=== PATIENT | female | born 1970 | race Hispanic/Latino ===

== ENCOUNTER 2018-01-17 10:27 | Emergency (ER) | payer BC ==
[2018-01-17 10:27] VITALS: BMI 27.3
[2018-01-17 11:06] VITALS: RESP 18; TEMP 98.2; O2SAT 100
[2018-01-17] MEDS ORDERED: Sodium Chloride 0.9% 1,000 ML IV STA (11:33)
--- NOTE | 2018-01-17 11:44 | ED PDOC ---
Arrival/HPI - General Chief Complaint: Headache Time Seen by Provider: 01/17/18 10:49 Historian: Patient, Parent - History of Present Illness Narrative History of Present Illness (Text): you were treated in the ED today for having hx of headaches similar to current with headache which has been persistent with hx of neck nerve type pain and associated light sensisitivity and nausea, but otherwise without any fever/head injury/loss of consciousness/vomiting/headache/dizziness/difficulty breathing/ chest pain/abdomen pain/numbness/tingling/loss of limb or bowel or bladder function/pain with urination/travel/prior blood clots/cancer/hormonal use. Time/Duration: Other (5 days) Symptom Onset: Gradual Symptom Course: Unchanged, Intermittent Quality: Aching Severity Level: 2 Activities at Onset: Rest Context: Sitting Past Medical History - Provider Review Nursing Documentation Reviewed: Yes - Travel History Have you recently traveled outside [place] w/in the past 3 mons?: No - Infectious Disease Hx of Infectious Diseases: None - Tetanus Immunization Tetanus Immunization: Unknown - Reproductive Menopause: No - Past Medical History Past Medical History: No Previous - Gastrointestinal Hx Gastrointestinal Ulcer: Yes - Psychiatric Hx Depression: No Hx Emotional Abuse: No Hx Physical Abuse: No Hx Substance Use: No - Surgical History Hx Section: Yes - Anesthesia Hx Anesthesia: No - Suicidal Assessment Feels Threatened In Home Enviroment: No Family/Social History - Physician Review Nursing Documentation Reviewed: Yes Family/Social History: No Known Family HX Smoking Status: Unknown If Ever Smoked Hx Alcohol Use: No Hx Substance Use: No Hx Substance Use Treatment: No Allergies/Home Meds Allergies/Adverse Reactions: Allergies No Known Allergies Allergy (Verified 01/17/18 11:16) Home Medications: Home Meds Medication Instructions Recorded Confirmed Levothyroxine [Synthroid] 0.1 mg PO DAILY 01/17/18 01/17/18 Review of Systems - Review of Systems Constitutional: Normal Eyes: Normal ENT: Normal Respiratory: Normal Cardiovascular: Chest Pain Gastrointestinal: Normal Genitourinary Female: Normal Musculoskeletal: Neck Pain Skin: Normal Neurological: Headache Endocrine: Normal Hemo/Lymphatic: Normal Psychiatric: Normal Physical Exam Vital Signs Reviewed: Yes Vital Signs Temp Pulse Resp BP Pulse Ox 01/17/18 11:05 98.2 F 81 18 131/57 L 100 Temperature: Afebrile Blood Pressure: Hypertensive Pulse: Regular Respiratory Rate: Normal Appearance: Positive for: Well-Appearing Pain Distress: None Mental Status: Positive for: Alert and Oriented X 3 - Systems Exam Head: Present: Atraumatic, Normocephalic Pupils: Present: PERRL Extroacular Muscles: Present: EOMI Conjunctiva: Present: Normal Ears: Present: Normal Mouth: Present: Moist Mucous Membranes Pharnyx: Present: Normal Nose (External): Present: Atraumatic Nose (Internal): Present: Normal Inspection Neck: Present: Normal Range of Motion, Other (no spinal tenderness but mild paraspinal discomfort wo redness) Respiratory/Chest: Present: Clear to Auscultation, Good Air Exchange Cardiovascular: Present: Regular Rate and Rhythm Abdomen: Present: Other (no pulsatile masses). No: Tenderness, Distention, Normal Bowel Sounds, Peritoneal Signs, Rebound, Guarding, McBurney's Point Tender, Rovsing's Sign Present, Hernias, Feeding Tubes, Ostomy Tubes, Mass/ Organomegaly, Scars Back: Present: Normal Inspection. No: CVA Tenderness, Midline Tenderness, Paraspinal Tenderness, Pain with Leg Raise, Decubitus Ulcer, Other Upper Extremity: Present: Normal Inspection Lower Extremity: Present: Normal Inspection Neurological: Present: GCS=15, CN II-XII Intact, Speech Normal, Motor Func Grossly Intact Skin: Present: Warm, Normal Color Psychiatric: Present: Alert, Oriented x 3, Normal Insight, Normal Concentration Medical Decision Making ED Course and Treatment: you were treated in the ED today for having hx of headaches similar to current with headache which has been persistent with hx of neck nerve type pain and associated light sensiitivity and nausea and the pain goes to the neck and chest , but otherwise without any fever/head injury/loss of consciousness/vomiting/ headache/dizziness/difficulty breathing/chest pain/abdomen pain/numbness/ tingling/loss of limb or bowel or bladder function/pain with urination/travel/ prior blood clots/cancer/hormonal use. You were otherwise breathing easily, smiling and talking with your mom, good strength/sensation, walking easily, clear lungs, no abdomen tenderness, no spinal tenderness or redness, no fever temp 98.2, stable heart rate 81, stable breathing rate 18, excellent oxygen level 100% room air, elevated blood pressure 131/57 which we recommend repeat in 2-3 days primary care office to determine further treatment, you have blood tests no infection count 7, stable blood level hemoglobin 13/platelets 272, stable chemistry, heart blood test negative less than 0.01, urine test blood, urine test negative, radiology ct head no acute, ct-c-spine unremarkable, chest xray no active disease, ECG sinus rhythm, flexeril, zofran, toradol, intravenous fluids, observation done in the ED with improvement, counselled to using heating padds and thus discharged home with mom. 1. Recommend tylenol as directed for mild pain. 2. Recommend flexeril as directed for moderate pain. 3. Recommend follow-up primary care 2-3 days to review symptoms, referral to cardiology and neurology to review your symptoms, referral to spine clinic to review your symptoms, referral to urology for blood in urine to ensure no complications. 4. If any worsening pain, fever, chills, nausea, vomiting, difficulty breathing, numbness, loss of limb function, pain with urination or any medical condition then return to the ED. aspirin held due to headache - ct head pending. no acute sign of ACS. 01/17/18 12:48 01/17/2018 13:16 Chest X-ray IMPRESSION: No active disease. Dictator: Fabio Braxton MD 01/17/2018 13:[address] IMPRESSION: No acute findings. Dictator: Fabio Braxton MD 01/17/2018 13:[address] IMPRESSION: Unremarkable CT of the cervical spine. Dictator: Fabio Braxton MD 01/17/18 14:11 01/17/18 14:12 Reassessment Condition: Re-examined, Improved - Lab Interpretations Lab Results: 01/17/18 12:20 01/17/18 12:20 Lab Results 01/17/18 12:20: Sodium 142, Potassium 4.2, Chloride 105, Carbon Dioxide 26, Anion Gap 16, BUN 14, Creatinine 0.7, Est GFR ( Amer) > 60, Est GFR (Non- Af Amer) > 60, Random Glucose 76, Calcium 9.1, Magnesium 2.1, Total Bilirubin 0.5, AST 27, ALT 28, Alkaline Phosphatase 66, Lactate Dehydrogenase 379, Total Creatine Kinase 60, Troponin I < 0.01, Total Protein 7.8, Albumin 4.4, Globulin 3.4, Albumin/Globulin Ratio 1.3 01/17/18 12:20: PT 12.0, INR 1.04, APTT 30.9 01/17/18 12:20: WBC 7.1, RBC 4.89, Hgb 13.2, Hct 39.6, MCV 81.0, MCH 27.0, MCHC 33.3, RDW 14.0, Plt Count 272, MPV 9.7, Gran % 57.7, Lymph % (Auto) 32.2, Weld % (Auto) 8.1 H, Eos % (Auto) 1.7, Baso % (Auto) 0.3, Gran # 4.12, Lymph # (Auto ) 2.3, Weld # (Auto) 0.6, Eos # (Auto) 0.1, Baso # (Auto) 0.02 01/17/18 11:50: Urine Color Yellow, Urine Appearance Clear, Urine pH 6.0, Ur Specific [place] <= 1.005, Urine Protein Negative, Urine Glucose (UA) Negative, Urine Ketones Negative, Urine Blood Moderate H, Urine Nitrate Negative, Urine Bilirubin Negative, Urine Urobilinogen 0.2, Ur Leukocyte Esterase Negative, Urine RBC 15 - 20, Urine WBC 0 - 2, Ur Epithelial Cells 3 - 4, Urine Bacteria Few I have reviewed the lab results: Yes - RAD Interpretation Radiology Orders: 01/17/18 11:32 CHEST PORTABLE [RAD] Stat 01/17/18 11:33 CERVICAL SPINE W/O CONTRAST [CT] Stat HEAD W/O CONTRAST [CT] Stat Plant Buyer: Radiologist (see mdm) - EKG Interpretation Interpreted by ED Physician: Yes (SR with flipped t waves avr, iii, v1, v2, with pvcs) Type: 12 lead EKG - Medication Orders Current Medication Orders: Discontinued Medications Cyclobenzaprine HCl (Flexeril) 10 mg PO STAT STA Stop: 01/17/18 11:35 Last Admin: 01/17/18 12:02 Dose: 10 mg Sodium Chloride (Sodium Chloride 0.9%) 1,000 mls @ 999 mls/hr IV .Q1H1M STA Stop: 01/17/18 12:33 Last Admin: 01/17/18 12:03 Dose: 999 mls/hr eMAR Start Stop Document 01/17/18 12:03 EQ (Rec: 01/17/18 12:03 EQ [id number]) Intravenous Solution Start Date 01/17/18 Start Time 12:03 Ondansetron HCl (Zofran Inj) 4 mg IVP STAT STA Stop: 01/17/18 11:34 Last Admin: 01/17/18 12:02 Dose: 4 mg IVP Administration Document 01/17/18 12:02 EQ (Rec: 01/17/18 12:02 EQ [id number]) Charges for Administration # of IVP Administrations 1 Disposition/Present on Arrival - Present on Arrival Any Indicators Present on Arrival: No History of DVT/PE: No History of Uncontrolled Diabetes: No Urinary Catheter: No History of Decub. Ulcer: No History Surgical Site Infection Following: None - Disposition Have Diagnosis and Disposition been Completed?: Yes Diagnosis: Headache Disposition: HOME/ ROUTINE Disposition Time: 14:13 Patient Plan: Discharge Condition: IMPROVED Additional Instructions: you were treated in the ED today for having hx of headaches similar to current with headache which has been persistent with hx of neck nerve type pain and associated light sensiitivity and nausea and the pain goes to the neck and chest , but otherwise without any fever/head injury/loss of consciousness/vomiting/ headache/dizziness/difficulty breathing/chest pain/abdomen pain/numbness/ tingling/loss of limb or bowel or bladder function/pain with urination/travel/ prior blood clots/cancer/hormonal use. You were otherwise breathing easily, smiling and talking with your mom, good strength/sensation, walking easily, clear lungs, no abdomen tenderness, no spinal tenderness or redness, no fever temp 98.2, stable heart rate 81, stable breathing rate 18, excellent oxygen level 100% room air, elevated blood pressure 131/57 which we recommend repeat in 2-3 days primary care office to determine further treatment, you have blood tests no infection count 7, stable blood level hemoglobin 13/platelets 272, stable chemistry, heart blood test negative less than 0.01, urine test blood, urine test negative, radiology ct head no acute, ct-c-spine unremarkable, chest xray no active disease, ECG sinus rhythm, flexeril, zofran, toradol, intravenous fluids, observation done in the ED with improvement, counselled to using heating padds and thus discharged home with mom. 1. Recommend tylenol as directed for mild pain. 2. Recommend flexeril as directed for moderate pain. don't work/drive/drink alcohol when using. 3. Recommend follow-up primary care 2-3 days to review symptoms, referral to cardiology and neurology to review your symptoms, referral to spine clinic to review your symptoms, referral to urology for blood in urine to ensure no complications. 4. If any worsening pain, fever, chills, nausea, vomiting, difficulty breathing, numbness, loss of limb function, pain with urination or any medical condition then return to the ED. Prescriptions: Cyclobenzaprine [Cyclobenzaprine HCl] 10 mg PO Q8 PRN 5 Days #15 tab PRN Reason: breakthrough pain Referrals: [facility], [Primary Care Provider] - Follow up with primary Forms: [email or web address] [facility] ([place]), WORK NOTE
[2018-01-17 11:59] LABS: URINE BILIRUBIN NEGATIVE (NEGATIVE); URINE BLOOD MODERATE (NEGATIVE); URINE GLUCOSE (UA) NEGATIVE (NEGATIVE); URINE LEUKOCYTE ESTERASE NEGATIVE Leu/uL (NEGATIVE); URINE PROTEIN NEGATIVE mg/dL (<30 mg/dL); URINE UROBILINOGEN 0.2 E.U./dL (<1 E.U./dL)
[2018-01-17 12:24] LABS: URINE APPEARANCE CLEAR (CLEAR); URINE COLOR YELLOW (YELLOW)
[2018-01-17 12:27] LABS: BASO # 0.02 K/mm3 (0.0-2.0); BASO % 0.3 % (0.0-3.0); EOS # 0.1 (0.0-0.7); EOS % 1.7 % (1.5-5.0); GRAN # 4.12 (1.4-6.5); GRAN % 57.7 % (50.0-68.0); HEMOGLOBIN 13.2 g/dL (12.0-16.0); LYMPH # 2.3 (1.2-3.4); LYMPH % 32.2 % (22.0-35.0); MEAN CORPUSCULAR HGB CONC 33.3 g/dl (31.0-37.0); MEAN PLATELET VOLUME 9.7 fl (7.0-11.0); MONO # 0.6 (0.1-0.6); MONO % 8.1 % (1.0-6.0); RBC 4.89 10^6/uL (3.5-6.1); WHITE BLOOD COUNT 7.1 10^3/ul (4.5-11.0)
[2018-01-17 12:34] LABS: URINE BACTERIA FEW (NEG); URINE RBC 15 - 20 /hpf (0-2); URINE WBC 0 - 2 /hpf (0-6)
[2018-01-17 12:40] LABS: ALB/GLOB RATIO 1.3 (1.1-1.8); ALBUMIN 4.4 g/dL (3.0-4.8); ALT/SGPT 28 U/L (7-56); AST/SGOT 27 U/L (14-36); BLOOD UREA NITROGEN 14 mg/dL (7-21); CALCIUM 9.1 mg/dL (8.4-10.5); GFR AFRICAN-AMERICAN > 60; GFR NON-AFRICAN AMERICAN > 60
[2018-01-17 12:42] LABS: INR 1.04 (0.93-1.08); PARTIAL THROMBOPLASTIN TIME 30.9 Seconds (25.1-36.5)
[2018-01-17 12:51] LABS: TROPONIN I < 0.01 ng/mL
--- NOTE | 2018-01-17 13:18 | RAD ---
HISTORY: 47yoF, chest pain COMPARISON: No prior. FINDINGS: LUNGS: No active pulmonary disease. PLEURA: No significant pleural effusion identified, no pneumothorax apparent. CARDIOVASCULAR: Normal. OSSEOUS STRUCTURES: No significant abnormalities. VISUALIZED UPPER ABDOMEN: Normal. OTHER FINDINGS: None. IMPRESSION: No active disease.
--- NOTE | 2018-01-17 13:26 | CT ---
PROCEDURE: CT HEAD WITHOUT CONTRAST. HISTORY: 47yoF, persistent headache COMPARISON: None available. TECHNIQUE: Axial computed tomography images were obtained through the head/brain without intravenous contrast. Radiation dose: Total exam DLP = 882 mGy-cm. This CT exam was performed using one or more of the following dose reduction techniques: Automated exposure control, adjustment of the mA and/or kV according to patient size, and/or use of iterative reconstruction technique. FINDINGS: HEMORRHAGE: No intracranial hemorrhage. BRAIN: No mass effect or edema. No atrophy or chronic microvascular ischemic changes. VENTRICLES: Unremarkable. No hydrocephalus. CALVARIUM: Unremarkable. PARANASAL SINUSES: Unremarkable as visualized. No significant inflammatory changes. MASTOID AIR CELLS: Unremarkable as visualized. No inflammatory changes. OTHER FINDINGS: None. IMPRESSION: No acute findings
--- NOTE | 2018-01-17 13:30 | CT ---
PROCEDURE: CT Cervical Spine without contrast HISTORY: 47yoF, with radicular type pain COMPARISON: None available. TECHNIQUE: Axial computed tomography images were obtained of the cervical spine without the use of intravenous contrast. Coronal and sagittal reformatted images were created and reviewed. Radiation dose: Total exam DLP = 633 mGy-cm. This CT exam was performed using one or more of the following dose reduction techniques: Automated exposure control, adjustment of the mA and/or kV according to patient size, and/or use of iterative reconstruction technique. FINDINGS: VERTEBRAE: No fracture. Normal alignment. No destructive bony lesion. DISCS/SPINAL CANAL/NEURAL FORAMINA: No significant central canal or neural foraminal stenosis. Mild disc degeneration at C5-6 PARASPINAL SOFT TISSUES: Unremarkable. OTHER FINDINGS: None. IMPRESSION: Unremarkable CT of the cervical spine.
[2018-01-17 14:49] VITALS: BP 129/84; PULSE 83
--- NOTE | 2018-01-17 18:24 | CARD ---
APPROVED REPORT EKG Measurement Heart [id number] <Conclusion> Sinus rhythm with occasional premature ventricular complexes Otherwise normal ECG
== END 2018-01-17 14:55 | disposition home or self-care (01) ==
LOC: ED 10:27
DX: R51 Headache (principal)
CPT/HCPCS: 70450; 71045; 72125; 80053; 81001; 82550; 83615; 83735; 84484; 85025; 85610; 85730; 87086; 93005; 96374; 96375; 99285; J1885; J2405; J7040